=== PATIENT | female | born 1940 | race Asian ===

== ENCOUNTER 2016-12-10 07:16 | Emergency (ER) | payer MEDICARE, OTHER ==
[~2016-12-10] VITALS: Ht 144.8 cm; Wt 47.3 kg
[2016-12-10 07:18] VITALS: BP 158/91
== END 2016-12-10 08:14 | disposition left against medical advice (07) ==
LOC: ED 07:43
DX: Z53.21 Procedure and treatment not carried out due to patient leaving prior to being seen by health care provider (principal)